=== PATIENT | male | born 1970 | race Caucasian/White ===

== ENCOUNTER 2021-07-16 14:28 | Emergency (ER) | payer SELFPAY ==
[~2021-07-16] VITALS: Ht 170.2 cm; Wt 95.3 kg
[~2021-07-16 14:28] MED LIST: FLEXERIL10 MG PO; IBUPROFEN800 MG PO; MEDROL 4MG DOSEP4 MG PO
[2021-07-16 17:22] LABS: BASOPHIL 0.5 % (0-2); EOSINOPHIL 1.4 % (0-5); HCT 46.4 % (42.0-52.0); HGB 14.9 g/dl (13.2-18.0); LYMPHOCYTE 32.4 % (15-48); MCH 26.8 pg (25.0-31.0); MCHC 32.1 g/dL (32.0-36.0); MCV 83.6 fL (78.0-100.0); MONOCYTE 6.1 % (0-12); MPV 9.6 fL (6.0-9.5); NEUTROPHIL 59.2 % (41-80); NRBC 0; PLT 364 K/uL (150-400); RBC 5.55 M/uL (4.70-6.00); WBC 10.2 K/uL (4.0-10.5)
[2021-07-16 17:32] LABS: INR 0.98 (0.9-1.2); PROTHROMBIN TIME 12.4 SECONDS (11.8-13.4)
[2021-07-16 17:40] LABS: POTASSIUM 4.2 mmol/L (3.5-5.1)
[2021-07-18 15:10] LABS: LUPUS REFLEX INTERPRETATION Comment: (.); PTT-LA 31.9 sec (0.0-51.9)
== END 2021-07-16 18:40 | disposition other institution (70) ==
LOC: FER 14:28
PROVIDERS: Emergency Medicine; Nurse Practitioner Family
DX: I77.9 Disorder of arteries and arterioles, unspecified (principal); U07.1 COVID-19
CPT/HCPCS: 36415; 80048; 82550; 85025; 85300; 85610; 85613; 85732; 93971; J1170; J1644; U0002

== ENCOUNTER 2022-02-19 07:04 | Emergency (ER) | payer SELFPAY ==
[2022-02-19] MEDS ORDERED: CYCLOBENZAPRINE10 MG PO (08:20)
[2022-02-19] MEDS ORDERED: PREDNISONE 20MG20 MG PO (08:20)
[2022-02-19] MEDS ORDERED: NORCO 5/3251 EACH PO (08:29)
== END 2022-02-19 09:06 | disposition home or self-care (01) ==
LOC: FER 07:04
DX: M54.16 Radiculopathy, lumbar region (principal); I10 Essential (primary) hypertension; F17.210 Nicotine dependence, cigarettes, uncomplicated; Z28.310 Unvaccinated for COVID-19; Z79.82 Long term (current) use of aspirin; Z79.899 Other long term (current) drug therapy
CPT/HCPCS: 72110; J2930